=== PATIENT | male | born 1945 | race Caucasian/White ===

== ENCOUNTER 2016-11-18 05:48 | Inpatient (IN) | payer MEDICARE, OTHER ==
[~2016-11-18] VITALS: Ht 205.7 cm; Wt 65.8 kg
[2016-11-18] VITALS (10 sets, daily range): BP systolic 130–190; BP diastolic 64–97
[2016-11-18] MEDS ORDERED: Surgicel 4in x 8in TOPIC ONE (07:17)
[2016-11-18] MEDS ORDERED: Bupivacaine 0.5% Inj 30 ml vial INJ ONE (07:17)
[2016-11-18] MEDS ORDERED: BYSTOLIC10 MG ORAL (07:21)
[2016-11-18] MEDS ORDERED: EXFORGE 5-1601 EACH ORAL (07:23)
[2016-11-18] MEDS ORDERED: VIT D PO (07:24)
[2016-11-18] MEDS ORDERED: METFORMIN HCL500 M1 ORAL (07:25)
[2016-11-18] MEDS ORDERED: SIMVASTATIN40 MG ORAL (07:25)
--- NOTE | 2016-11-18 07:29 | Anethesia Preoperative Eval ---
Anesthesia Pre-op PMH/ROS General Date of Evaluation: Nov 18, 2016 Time of Evaluation: 07:36 Anesthesiologist: Diana ASA Score: ASA 3 Mallampati Score Class I : Soft palate, uvula, fauces, pillars visible Class II: Soft palate, uvula, fauces visible Class III: Soft palate, base of uvula visible Class IV: Only hard plate visible Mallampati Classification: Class II Surgeon: Jennifer Diagnosis: Abd Pain Surgical Procedure: L Partial Nephrectomy, Hand Assist, Laparoscopic Anesthesia History: none Family History: no anesthesia problems Allergies: Coded Allergies: PENICILLINS (Verified Allergy, Intermediate, rash, 11/17/16) IODINE (Verified Allergy, Unknown, 11/17/16) Medications: see eMAR Past Medical History Cardiovascular: Reports: HTN, other - HL Gastrointestinal/Genitourinary: Reports: GERD Endocrine: Reports: DM HEENT: Reports: cataract (L), cataract (R) Hematology/Immune: Reports: other - Renal Cell CA Anesthesia Pre-op Phys. Exam Physician Exam Last Vital Signs Date Time Temp Pulse Resp B/P Pulse Ox O2 Delivery O2 Flow Rate FiO2 11/18/16 07:03 98.2 63 20 139/81 97 Room Air Constitutional: NAD Neurologic: CN 2-12 intact Cardiovascular: RRR Respiratory: CTA Gastrointestinal: S/NT/ND Airway Exam Mallampati Score: Class III MO: limited ROM: limited Teeth: missing Anesthesia Pre-op A/P Risk Assessment & Plan Assessment: ASA 3 Plan: GA, BIS, Glidescope Status Change Before Surgery: No Pre-Antibiotics Dru Gram Ancef IV Time Given: 07:26 Renato Ortiz MD Nov 18, 2016 07:29
[2016-11-18] MEDS ORDERED: AMITIZA8 MCG ORAL (07:40)
--- NOTE | 2016-11-18 08:07 | Pre-Procedure Note/Attestation ---
Pre-Procedure Note/Attestation Complete Prior to Procedure Planned Procedure: left Procedure Narrative: Left Laparoscopic NEPHRECTOMY Indications for Procedure Pre-Operative Diagnosis: LEFT RENAL MASS Attestation I attest that I discussed the nature of the procedure; its benefits; risks and complications; and alternatives (and the risks and benefits of such alternatives ), prior to the procedure, with the patient (or the patient's legal treasury representative). I attest that, if there was a reasonable possibility of needing a blood transfusion, the patient (or the patient's legal treasury representative) was given the [facility] standardized written summary, pursuant to the Murtaza Morales-Sanchez Blood Safety Act ([place] Health and Safety Code # 1645, as amended). I attest that I re-evaluated the patient just prior to the surgery and that there has been no change in the patient's H&P, except as documented below: Cali Rodriguez MD Nov 18, 2016 08:07
--- NOTE | 2016-11-18 08:09 | Brief Operative Note ---
Immediate Post Operative Note Operative Note Pre-op Diagnosis: LEFT RENAL MASS Procedure: left laparoscopic nephrectomy Post-op Diagnosis: same Surgeon: Zaid Rodriguez Anesthesia: general Specimen: yes Complications: none Condition: stable Estimated Blood Loss: minimal Implant(s) used?: No Cali Rodriguez MD Nov 18, 2016 08:09
[2016-11-18] MEDS ORDERED: NS Irrig 1000ml IRRIG ONE (08:31)
[2016-11-18] MEDS ORDERED: CREON DR 24,001 EACH PO (08:51)
[2016-11-18] MEDS ORDERED: RAPAFLO8 MG ORAL (08:51)
[2016-11-18] MEDS ORDERED: VASCEPA1 GM PO (08:53)
[2016-11-18] MEDS ORDERED: ASPIR 8181 MG ORAL (08:54)
[2016-11-18] MEDS ORDERED: ZETIA10 MG ORAL (08:55)
[2016-11-18] MEDS ORDERED: LR 1000ml 1,000 ML IVLG SCH (09:27)
[2016-11-18] MEDS ORDERED: Ketorolac 30mg Inj IV PRN (09:30)
[2016-11-18] MEDS ORDERED: Ketorolac 60mg Inj IV PRN (09:30)
[2016-11-18] MEDS ORDERED: LORazepam Inj 2mg/ml 1ml IV PRN (09:30)
[2016-11-18] MEDS ORDERED: Norco 7.5mg/325mg tab ORAL PRN (09:30)
[2016-11-18] MEDS ORDERED: Labetalol 5mg/ml 20ml vial IV PRN (09:30)
[2016-11-18] MEDS ORDERED: Norco 5mg/325mg tab ORAL PRN (09:30)
[2016-11-18] MEDS ORDERED: Meperidine 25mg/ml Inj IV PRN (09:30)
[2016-11-18] MEDS ORDERED: Oxycodone/Acetaminophen 5-325 ORAL PRN (09:30)
[2016-11-18] MEDS ORDERED: Atropine Inj 1mg/10ml Syr IV PRN (09:30)
[2016-11-18] MEDS ORDERED: fentaNYL 100 mcg/2 mL IV PRN (09:30)
[2016-11-18] MEDS ORDERED: Midazolam 2mg/2ml Inj IVP PRN (09:30)
[2016-11-18] MEDS ORDERED: Metoclopramide 10mg/2ml Inj IVP PRN (09:30)
[2016-11-18] MEDS ORDERED: Hydromorphone 0.5mg/0.5ml inj IVP PRN (09:30)
[2016-11-18] MEDS ORDERED: DiphenhydrAMINE 50mg/ml Inj IVP PRN (09:30)
--- NOTE | 2016-11-18 09:30 | Immediate Post-Op Evaluation ---
Immediate Post-Op Evalulation Immediate Post-Op Evalulation Procedure: L Partial Nephrectomy, Hand Assist, Laparoscopic Date of Evaluation: Nov 18, 2016 Time of Evaluation: 09:32 IV Fluids: 1000 LR Blood Products: 0 Estimated Blood Loss: 50 Urinary Output: 200 Blood Pressure Systolic: 184 Blood Pressure Diastolic: 97 Pulse Rate: 61 Respiratory Rate: 18 O2 Sat by Pulse Oximetry: 98 Temperature (Fahrenheit): 97 Pain Score (1-10): 3 Nausea: No Vomiting: No Complications 0 Patient Status: awake, reacts, patent, extubated, none Hydration Status: adequate Dru Gram Ancef IV Given Within 1 Hr of Incision: Yes Time Given: 07:46 Renato Ortiz MD Nov 18, 2016 09:30
[2016-11-18] MEDS: HYDROmorphone 1mg/ml Carpuject IVP PRN ×2 (12:22→18:43)
[2016-11-18 13:30] LABS: MEAN CORPUSCULAR HEMOGLOBIN 31.7 PG (27.0-31.0); MEAN CORPUSCULAR HGB CONC 33.1 G/DL (32.0-36.0); MEAN CORPUSCULAR VOLUME 96 FL (80-99); MEAN PLATELET VOLUME 6.8 FL (6.5-10.1); PLATELET COUNT 163 K/UL (150-450); RED BLOOD COUNT 4.32 M/UL (4.70-6.10); RED CELL DISTRIBUTION WIDTH 12.4 % (11.6-14.8); WHITE BLOOD COUNT 12.4 K/UL (4.8-10.8)
[2016-11-18 13:41] LABS: ANION GAP 13 (5-15); CALCIUM 9.1 mg/dL (8.6-10.2); CARBON DIOXIDE 29 mEQ/L (20-30); CHLORIDE 102 mEQ/L (98-107); CREATININE 1.5 mg/dL (0.7-1.2); HEMOLYSIS 6; POTASSIUM 4.5 mEQ/L (3.4-4.9); SODIUM 144 mEQ/L (135-145)
[2016-11-18 13:50] LABS: BAND NEUTROPHILS % (MANUAL) 0 % (0-8); BASOPHILS % (MANUAL) 0 % (0-2); EOSINOPHILS % (MANUAL) 0 % (0-3); LYMPHOCYTES % (MANUAL) 5 % (20-45); NEUTROPHILS % (MANUAL) 93 % (45-75); PLATELET ESTIMATE ADEQUATE; PLATELET MORPHOLOGY NORMAL; TOTAL CELLS COUNTED 100
[2016-11-18] MEDS: D5 1/2NS w/KCl 20mEq 1,000 ML IV SCH (14:00)
[2016-11-18] MEDS: ceFAZolin sod 1 GM in D5W 55 ML IV SCH (17:10)
[2016-11-18] MEDS: Docusate 100mg cap ORAL SCH (17:11)
--- NOTE | 2016-11-18 20:21 | Internal Med Progress Note ---
Subjective Physician Name Nikhil De La Garza Attending Physician Cali Rodriguez MD Current Medications Medications (Trade) Dose Ordered Sig/Cindy Route PRN Reason Start Time Stop Time Status Last Admin Dose Admin Acetaminophen (Tylenol) 650 mg Q4H PRN ORAL FEVER 11/18/16 08:15 12/18/16 08:14 Acetaminophen 650 mg 650 mg Q6H PRN ORAL Mild Pain (Pain Scale 1-3) 11/18/16 08:15 12/18/16 08:14 Cefazolin Sodium/ Dextrose (Ancef/D5W) 55 ml @ 110 mls/hr Q8H IV 11/18/16 16:00 11/19/16 00:29 11/18/16 17:10 Dextrose/ Electrolytes (D5 0.45%NS W/ KCl 20mEq) 1,000 ml @ 100 mls/hr Q10H IV 11/18/16 14:00 12/18/16 13:59 11/18/16 14:00 Docusate Sodium (Colace) 100 mg TWICE A DAY ORAL 11/18/16 18:00 12/18/16 17:59 11/18/16 17:11 Hydromorphone HCl (Dilaudid) 1 mg Q3H PRN IVP pain score 4-6 11/18/16 08:15 11/25/16 08:14 11/18/16 18:43 Ondansetron HCl (Zofran) 4 mg Q6H PRN IVP Nausea & Vomiting 11/18/16 08:15 12/18/16 08:14 Allergies: Coded Allergies: PENICILLINS (Verified Allergy, Intermediate, rash, 11/17/16) IODINE (Verified Allergy, Unknown, 11/17/16) Subjective awake, alert, responsive, family at bedside, NAD Objective Last Vital Signs Date Time Temp Pulse Resp B/P Pulse Ox O2 Delivery O2 Flow Rate FiO2 11/18/16 16:00 98.4 62 16 130/65 97 Nasal Cannula 2.0 General Appearance: WD/WN, no apparent distress, alert EENT: PERRL/EOMI, normal ENT inspection Neck: non-tender, normal alignment, supple, normal inspection Cardiovascular: normal peripheral pulses, normal rate, regular rhythm, other - Pacemaker @ [facility] Respiratory/Chest: lungs clear, normal breath sounds, no respiratory distress Abdomen: normal bowel sounds, soft, other - surgival incision intact dressing, tender Genitourinary/Rectal: normal genital exam Extremities: normal range of motion, non-tender Edema: non-pitting Neurologic: purchase analyst II-XII grossly normal, no motor/sensory deficits, alert, oriented x 3, responsive Skin: normal pigmentation, warm/dry Laboratory Tests Test 11/18/16 12:40 White Blood Count 12.4 K/UL (4.8-10.8) H Red Blood Count 4.32 M/UL (4.70-6.10) L Hemoglobin 13.7 G/DL (14.2-18.0) L Hematocrit 41.3 % (42.0-52.0) L Mean Corpuscular Volume 96 FL (80-99) Mean Corpuscular Hemoglobin 31.7 PG (27.0-31.0) H Mean Corpuscular Hemoglobin Concent 33.1 G/DL (32.0-36.0) Red Cell Distribution Width 12.4 % (11.6-14.8) Platelet Count 163 K/UL (150-450) Mean Platelet Volume 6.8 FL (6.5-10.1) Neutrophils (%) (Auto) % (45.0-75.0) Lymphocytes (%) (Auto) % (20.0-45.0) Monocytes (%) (Auto) % (1.0-10.0) Eosinophils (%) (Auto) % (0.0-3.0) Basophils (%) (Auto) % (0.0-2.0) Differential Total Cells Counted 100 Neutrophils % (Manual) 93 % (45-75) H Lymphocytes % (Manual) 5 % (20-45) L Monocytes % (Manual) 2 % (1-10) Eosinophils % (Manual) 0 % (0-3) Basophils % (Manual) 0 % (0-2) Band Neutrophils 0 % (0-8) Platelet Estimate Adequate Platelet Morphology Normal Red Blood Cell Morphology Normal Sodium Level 144 mEQ/L (135-145) Potassium Level 4.5 mEQ/L (3.4-4.9) Chloride Level 102 mEQ/L (98-107) Carbon Dioxide Level 29 mEQ/L (20-30) Anion Gap 13 (5-15) Blood Urea Nitrogen 14 mg/dL (7-23) Creatinine 1.5 mg/dL (0.7-1.2) H Estimat Glomerular Filtration Rate mL/min (>60) Glucose Level 140 mg/dL (74-106) H Calcium Level 9.1 mg/dL (8.6-10.2) Assessment/Plan Assessment/Plan Left renal mass s/p left laparoscopic nephrectomy (11/18/2016) HTN DM 2 SSS s/p pacemaker BPH PVD GERD CAD Plan: Monitor labs in AM monitor Blood glucose level ambulation pain medication Abx: Ancef IVF discuss with family at bedside Nikhil De La Garza MD Nov 18, 2016 20:21
[2016-11-18] MEDS: NovoLOG Insulin Flexpen SUBQ SCH (22:06)
[2016-11-19] MEDS: D5 1/2NS w/KCl 20mEq 1,000 ML IV SCH (00:05)
[2016-11-19] MEDS: ceFAZolin sod 1 GM in D5W 55 ML IV SCH (00:05)
[2016-11-19 00:31] VITALS: BP 134/73
[2016-11-19 04:00] VITALS: BP 126/67
[2016-11-19] MEDS: HYDROmorphone 1mg/ml Carpuject IVP PRN ×2 (04:19→09:49)
[2016-11-19] MEDS: Pancrease Cap ORAL SCH ×2 (06:21→12:11)
[2016-11-19] MEDS: NovoLOG Insulin Flexpen SUBQ SCH ×2 (06:22→11:30)
[2016-11-19 07:03] LABS: BASOPHILS % (AUTO) 0.4 % (0.0-2.0); EOSINOPHILS % (AUTO) 0.2 % (0.0-3.0); LYMPHOCYTES % (AUTO) 13.7 % (20.0-45.0); MEAN CORPUSCULAR HEMOGLOBIN 31.9 PG (27.0-31.0); MEAN CORPUSCULAR HGB CONC 33.5 G/DL (32.0-36.0); MEAN CORPUSCULAR VOLUME 95 FL (80-99); MEAN PLATELET VOLUME 6.6 FL (6.5-10.1); MONOCYTES % (AUTO) 10.2 % (1.0-10.0); NEUTROPHILS % (AUTO) 75.5 % (45.0-75.0); PLATELET COUNT 156 K/UL (150-450); RED BLOOD COUNT 3.81 M/UL (4.70-6.10); WHITE BLOOD COUNT 10.7 K/UL (4.8-10.8)
[2016-11-19 07:13] LABS: ALANINE AMINOTRANSFERASE 9 U/L (3-41); ALBUMIN/GLOBULIN RATIO 1.5 (1.0-2.7); ANION GAP 10 (5-15); ASPARTATE AMINO TRANSFERASE 16 U/L (5-40); CALCIUM 8.7 mg/dL (8.6-10.2); CARBON DIOXIDE 29 mEQ/L (20-30); CHLORIDE 101 mEQ/L (98-107); CREATININE 1.9 mg/dL (0.7-1.2); HEMOLYSIS 4; POTASSIUM 4.5 mEQ/L (3.4-4.9); SODIUM 140 mEQ/L (135-145); TOTAL PROTEIN 5.6 g/dL (6.6-8.7)
[2016-11-19] MEDS ORDERED: LR 1000ml ONE (07:30)
[2016-11-19] MEDS ORDERED: Sterile Water Irrig 1000ml IRRIG ONE (07:30)
[2016-11-19] MEDS ORDERED: Neostigmine 1mg/ml 10ml Inj ONE (07:30)
[2016-11-19] MEDS ORDERED: fentaNYL 100 mcg/2 mL IV ONE (07:30)
[2016-11-19] MEDS ORDERED: Propofol 10mg/ml 20ml IV ONE (07:30)
[2016-11-19] MEDS ORDERED: Glycopyrrolate 0.2mg/ml 1ml Vial ONE (07:30)
[2016-11-19] MEDS ORDERED: Zemuron 50mg/5ml Inj IV ONE (07:30)
[2016-11-19] MEDS ORDERED: NS Irrig 1000ml ONE (07:30)
[2016-11-19] MEDS ORDERED: Lidocaine 1% MPF 10mg/ml 5ml ONE (07:30)
[2016-11-19] MEDS ORDERED: Midazolam 2mg/2ml Inj ONE (07:30)
--- NOTE | 2016-11-19 07:42 | 48 Hour Post Anesthesia Eval ---
Post Anesthesia Evaluation Procedure: L Partial Nephrectomy, Hand Assist, Laparoscopic Date of Evaluation: Nov 19, 2016 Time of Evaluation: 07:16 Blood Pressure Systolic: 126 0: 76 Pulse Rate: 61 Respiratory Rate: 18 Temperature (Fahrenheit): 98.1 O2 Sat by Pulse Oximetry: 94 Airway: patent Nausea: No Vomiting: No Pain Intensity: 2 Hydration Status: adequate Cardiopulmonary Status: Stable Mental Status/LOC: patient returned to baseline Follow-up Care/Observations: 0 Post-Anesthesia Complications: 0 Follow-up care needed: N/A Renato Ortiz MD Nov 19, 2016 07:42
[2016-11-19 07:43] LABS: MAGNESIUM 2.9 mg/dL (1.7-2.5); PHOSPHORUS 2.7 mg/dL (2.5-4.8)
[2016-11-19 07:49] VITALS: BP 127/62
[2016-11-19] MEDS: Docusate 100mg cap ORAL SCH (08:17)
[2016-11-19] MEDS ORDERED: metFORMIN 500mg tab ORAL SCH (09:00)
[2016-11-19 12:31] VITALS: BP 121/66
--- NOTE | 2016-11-19 14:38 | Internal Med Progress Note ---
Subjective Physician Name FredericNikhil salcedo Attending Physician Cali Rodriguez MD Current Medications Medications (Trade) Dose Ordered Sig/Cindy Route PRN Reason Start Time Stop Time Status Last Admin Dose Admin Acetaminophen (Tylenol) 650 mg Q4H PRN ORAL FEVER 11/18/16 08:15 12/18/16 08:14 Acetaminophen (Tylenol) 650 mg Q6H PRN ORAL Mild Pain (Pain Scale 1-3) 11/18/16 08:15 12/18/16 08:14 Amylase/Lipase/ Protease (Pancrease) 2 ea BEFORE MEALS ORAL 11/19/16 06:30 12/19/16 06:29 11/19/16 12:11 Atorvastatin Calcium (Lipitor) 40 mg BEDTIME ORAL 11/18/16 21:00 12/18/16 20:59 11/18/16 22:02 Dextrose (Dextrose 50%) STAT PRN IV Hypoglycemia 11/18/16 20:15 12/18/16 20:14 Docusate Sodium (Colace) 100 mg TWICE A DAY ORAL 11/18/16 18:00 12/18/16 17:59 11/19/16 08:17 Hydromorphone HCl (Dilaudid) 1 mg Q3H PRN IVP pain score 4-6 11/18/16 08:15 11/25/16 08:14 11/19/16 09:49 Insulin Aspart (NovoLOG) BEFORE MEALS AND HS SUBQ 11/18/16 21:00 12/18/16 20:59 11/19/16 06:22 Nebivolol (Bystolic) 5 mg Q12HR ORAL 11/19/16 22:00 12/19/16 21:59 Ondansetron HCl (Zofran) 4 mg Q6H PRN IVP Nausea & Vomiting 11/18/16 08:15 12/18/16 08:14 Allergies: Coded Allergies: PENICILLINS (Verified Allergy, Intermediate, rash, 11/17/16) IODINE (Verified Allergy, Unknown, 11/17/16) Subjective awake, alert, responsive, at bedside, NAD, ambulation in hallway, DC Peres cath Objective Last Vital Signs Date Time Temp Pulse Resp B/P Pulse Ox O2 Delivery O2 Flow Rate FiO2 11/19/16 12:31 98.0 76 18 121/66 99 Room Air 11/19/16 00:31 2.0 Laboratory Tests Test 11/19/16 05:40 White Blood Count 10.7 K/UL (4.8-10.8) Red Blood Count 3.81 M/UL (4.70-6.10) L Hemoglobin 12.2 G/DL (14.2-18.0) L Hematocrit 36.3 % (42.0-52.0) L Mean Corpuscular Volume 95 FL (80-99) Mean Corpuscular Hemoglobin 31.9 PG (27.0-31.0) H Mean Corpuscular Hemoglobin Concent 33.5 G/DL (32.0-36.0) Red Cell Distribution Width 12.0 % (11.6-14.8) Platelet Count 156 K/UL (150-450) Mean Platelet Volume 6.6 FL (6.5-10.1) Neutrophils (%) (Auto) 75.5 % (45.0-75.0) H Lymphocytes (%) (Auto) 13.7 % (20.0-45.0) L Monocytes (%) (Auto) 10.2 % (1.0-10.0) H Eosinophils (%) (Auto) 0.2 % (0.0-3.0) Basophils (%) (Auto) 0.4 % (0.0-2.0) Sodium Level 140 mEQ/L (135-145) Potassium Level 4.5 mEQ/L (3.4-4.9) Chloride Level 101 mEQ/L (98-107) Carbon Dioxide Level 29 mEQ/L (20-30) Anion Gap 10 (5-15) Blood Urea Nitrogen 16 mg/dL (7-23) Creatinine 1.9 mg/dL (0.7-1.2) H Estimat Glomerular Filtration Rate mL/min (>60) Glucose Level 136 mg/dL (74-106) H Calcium Level 8.7 mg/dL (8.6-10.2) Phosphorus Level 2.7 mg/dL (2.5-4.8) Magnesium Level 2.9 mg/dL (1.7-2.5) H Total Bilirubin 0.4 mg/dL (0.0-1.2) Aspartate Amino Transf (AST/SGOT) 16 U/L (5-40) Alanine Aminotransferase (ALT/SGPT) 9 U/L (3-41) Alkaline Phosphatase 52 U/L (40-129) Total Protein 5.6 g/dL (6.6-8.7) L Albumin 3.4 g/dL (3.5-5.2) L Globulin 2.2 g/dL Albumin/Globulin Ratio 1.5 (1.0-2.7) Intake and Output 11/18/16 11/19/16 19:00 07:00 Intake Total 700 ml Output Total 750 ml 1010 ml Balance -750 ml -310 ml IV Total 700 ml Output Urine Total 750 ml 1010 ml # Voids 1 Objective General Appearance: WD/WN, no apparent distress, alert EENT: PERRL/EOMI, normal ENT inspection Neck: non-tender, normal alignment, supple, normal inspection Cardiovascular: normal peripheral pulses, normal rate, regular rhythm, other - Pacemaker @ [facility] Respiratory/Chest: lungs clear, normal breath sounds, no respiratory distress Abdomen: normal bowel sounds, soft, surgical incision intact dressing, tender Genitourinary/Rectal: normal genital exam Extremities: normal range of motion, non-tender Edema: non-pitting Neurologic: peanut shaker II-XII grossly normal, no motor/sensory deficits, alert, oriented x 3, responsive Skin: normal pigmentation, warm/dry Assessment/Plan Assessment/Plan Left renal mass s/p left laparoscopic nephrectomy (11/18/2016) HTN DM 2 SSS s/p pacemaker BPH PVD GERD CAD Plan: monitor Blood glucose level ambulation DC Home today discuss with family at bedside Nikhil De La Garza MD Nov 19, 2016 14:38
[2016-11-19 15:55] VITALS: BP 149/75
--- NOTE | 2016-11-20 | Discharge Summary ---
DATE OF ADMISSION: 11/18/2016 DATE OF DISCHARGE: 11/19/2016 HISTORY AND HOSPITAL COURSE: This is a 71-year-old Pakistani-speaking gentleman with past medical history significant for left renal mass, hypertension, diabetes type 2, sick sinus syndrome, status post pacemaker, BPH, peripheral vascular disease, GERD, and coronary artery disease who presented to the hospital for further evaluation of the left renal mass. Shortly after initial evaluation, the patient underwent left laparoscopic nephrectomy by Dr. Cali Rodriguez. The patient's procedure was successful and had no complication, and subsequently, the patient was discharged home today to be followed as outpatient with Dr. Rodriguez as outpatient. FINAL DIAGNOSES: 1. Left renal mass, status post left laparoscopic nephrectomy. 2. Hypertension. 3. Diabetes type 2. 4. Sick sinus syndrome, status post pacemaker. 5. Benign prostatic hypertrophy. 6. Peripheral vascular disease. 7. Gastroesophageal reflux disease. 8. Coronary artery disease. MEDICATIONS ON DISCHARGE: Continue discharge medication list. ACTIVITY: As tolerated. DIET: Would be 1800-ADA cardiac diet. The patient was advised to follow up with Dr. Rodriguez within one to two weeks. The patient will follow up with home health as outpatient. Nikhil De La Garza M.D. DR: MINH JOB#: [id number] CC:
--- NOTE | 2016-11-20 09:00 | Operative Note - Dictated ---
DATE OF OPERATION: 11/18/2016 SURGEON: Jacinto Ramirez M.D. DROPHAMMER OPERATOR: Cali Rodriguez M.D. ANESTHESIA: General endotracheal. ANESTHESIOLOGIST: Renato Ortiz M.D. PREOPERATIVE DIAGNOSIS: Intraabdominal adhesions. POSTOPERATIVE DIAGNOSIS: Intraabdominal adhesions. PROCEDURE PERFORMED: Laparoscopic lysis of adhesions. BACKGROUND: The patient is a 71-year-old male with a left kidney tumor, who was elected to undergo hand-assisted left nephrectomy. During the procedure that was started by Dr. Cali Rodriguez, the dense adhesions were found in the left abdomen extending to descending colon and omentum and anterior abdominal wall that precluded access to the left kidney. I was requested by Dr. Cali Rodriguez to perform lysis of adhesions. OPERATIVE FINDINGS: Dense adhesions between the anterior abdominal wall, spleen, omentum, and left colon. PROCEDURE IN DETAIL: The patient was placed in the right decubitus position and procedure was started by Dr. Cali Rodriguez after general anesthesia was induced. A small laparotomy was performed in a left lateral decubitus position and the hand-assisted device was placed. After that, Dr. Cali Rodriguez encountered the adhesions and I was requested to scrub it. I placed my left hand through the hand-assisted port and additional two 10 mm trocars were placed in the left abdomen. A 30-degree scope was used. Using sharp and blunt dissection were appropriate. I took down the omental adhesions from the anterior abdominal wall. After that, the left colon was mobilized taking care of avoiding injury to the spleen. The splenic flexure was taken down and reflected medially. After this, hemostasis were confirmed and made sure that the bowel was not injured and by this maneuver the safe access to the left kidney was gained and the rest of the procedure was performed by Dr. Cali Rodriguez and he will dictate the procedure separately. Jacinto Ramirez M.D. DR: MONIQUE JOB#: [id number] CC: WAGNER
--- NOTE | 2016-11-21 03:18 | Operative Note - Dictated ---
DATE OF OPERATION: 11/18/2016 NOTE: POOR AUDIO PREOPERATIVE DIAGNOSIS: Left renal mass. POSTOPERATIVE DIAGNOSIS: Left renal mass. OPERATION: Left laparoscopic radical nephrectomy. OPERATED BY: Cali Rodriguez M.D. ANESTHESIA: General. FINDINGS: Left renal mass. INDICATION FOR SURGERY: The patient is well known to my office and had a CT scan screening for questionable cyst in the left kidney in the ultrasound hypoechoic region suspicious for renal cell carcinoma. Treatment options were explained to him in great length including all potential complications and he signed the consent. DESCRIPTION OF OPERATION: The patient was brought to the operating room, placed in a left lateral decubitus position, prepped and draped in standard fashion. Under general anesthesia, a 6 cm incision area was made. trocar was placed . After that, I dissected the ureter, clipped and severed between hemoclips. Ureter was slightly dissected away from the surrounding adhesions cautioned more complicated and difficult radical nephrectomy. Endo-RAFIQ was used to transect the renal pedicle . Kidney was removed for pathologic examination. Estimated blood loss was approximately 200 mL. The patient tolerated the procedure well. No evidence of complications. Sponge count and instrument count was correct. Cali Rodriguez M.D. DR: CHRISS JOB#: [id number] CC:
== END 2016-11-19 16:00 | disposition home or self-care (01) | DRG 661 ==
LOC: SDSOVERFLO 05:48 → 3E 11:17
PROC: 0JN83ZZ Release Abdomen Subcutaneous Tissue and Fascia, Percutaneous Approach (ICD-10-PCS; principal; 2016-11-18 07:30)
PROC: 0DNG4ZZ Release Left Large Intestine, Percutaneous Endoscopic Approach (ICD-10-PCS; principal; 2016-11-18 07:30)
PROC: 0TT14ZZ Resection of Left Kidney, Percutaneous Endoscopic Approach (ICD-10-PCS; principal; 2016-11-18 07:30)
DX: N28.89 Other specified disorders of kidney and ureter (principal); E11.51 Type 2 diabetes mellitus with diabetic peripheral angiopathy without gangrene; I11.9 Hypertensive heart disease without heart failure; K66.0 Peritoneal adhesions (postprocedural) (postinfection); K21.9 Gastro-esophageal reflux disease without esophagitis; N40.0 Benign prostatic hyperplasia without lower urinary tract symptoms; I25.10 Atherosclerotic heart disease of native coronary artery without angina pectoris; F17.210 Nicotine dependence, cigarettes, uncomplicated; J44.9 Chronic obstructive pulmonary disease, unspecified; Z95.0 Presence of cardiac pacemaker; Z88.0 Allergy status to penicillin
CPT/HCPCS: 36415; 80048; 80053; 82962; 83735; 84100; 85007; 85025; 86850; 86900; 86901; 87081; 94003; 94150; J1815; J2180; J2250; J2405; J2710